=== PATIENT | male | born 1950 | race Caucasian/White ===

== ENCOUNTER 2016-11-25 09:17 | Day surgery (SDC) | payer MEDICARE ==
[~2016-11-25 09:17] MED LIST: RINGERS SOLUTION,LACTATED 1,000 ML IV PRN; ceFAZolin SODIUM 1 GM VIAL IV PRN
--- OUTSIDE RECORDS SUMMARY | 2016-11-25 09:24 | XMS REPORT | Continuity of Care Document ---
:1950 Author Organization [employer] Address [place] [address] Care Team Providers Name Role Phone Bar Wills Primary Care Provider [phone] Source Comments This disclosure is being made pursuant to the [employer] program and maynot contain all information available regarding this patient.[employer] Active Allergies and Adverse Reactions Not on File Current Medications Be aware that medications may not be up to date as of this document. Alwaysverify current medications with the patient. Prescription Sig. Disp. Refills Start Date End Date Status zolpidem (AMBIEN) 10 MG Take 10 mg by Active tablet mouth. amLODIPine (NORVASC) 2.5 MG Take 2.5 mg by Active tablet mouth daily. DULoxetine (CYMBALTA) 30 MG Take 30 mg by Active capsule mouth 2 (two) times daily. topiramate (TOPAMAX) 100 MG Take 100 mg by Active tablet mouth 2 (two) times daily. atorvastatin (LIPITOR) 40 Take 40 mg by Active MG tablet mouth daily. Cholecalciferol (VITAMIN D Take by mouth 2 Active PO) (two) times daily. Active Problems Problem Noted Date Iron deficiency anemia due to chronic blood loss 07/28/2015 Lumbosacral spondylosis 03/25/2011 Overview: Overview: SANDRA ALLEN MD Thoracic or lumbosacral neuritis or radiculitis 03/25/2011 Overview: Overview: SANDRA ALLEN MD Most Recent Encounters Date Type Specialty Providers Description 11/19/2016 Data Import Social History Tobacco Use Types Packs/Day Years Used Date Never Assessed Last Filed Vital Signs Vital Sign Reading Time Taken Blood Pressure 142/80 05/21/2011 3:19 PM CDT Pulse 70 05/21/2011 3:19 PM CDT Temperature 36.3 C (97.4 F) 05/21/2011 3:19 PM CDT Respiratory Rate 18 05/21/2011 3:19 PM CDT Height 1.778 m (5' 10") 05/21/2011 3:19 PM CDT Weight 106.142 kg (234 lb) 05/21/2011 3:19 PM CDT Body Mass Index 33.58 05/21/2011 3:19 PM CDT Oxygen Saturation - - Plan of Care Health Maintenance Due Date Last Done Comments Hepatitis C Screening 1966 Tetanus/Pertussis (1 - Tdap) 1967 Well Adult Visit 1998 Zoster Vaccine 60+ 2008 Pneumococcal Low/Medium Risk 65+ (1 of 2 - 2013 PCV13) Influenza Immunization (#1) 2016 Colonoscopy 07/04/2025 07/04/2015, 07/04/2015 Results from Last 3 Months Not on file
[2016-11-25] MEDS ORDERED: RINGERS SOLUTION,LACTATED 1,000 ML IV ONE ×2 (10:11→12:20)
--- NOTE | 2016-11-25 14:26 | OR ---
Operative Report - Dictated Report Narrative: Date: 11/25/2016 Surgeon: Moustapha Rodriguez M.D. Philanthropy Officer: Saran Amaral PA-C Preoperative diagnosis: Left Thumb carpometacarpal arthrosis, left long and ring trigger fingers Postoperative diagnosis: Left Thumb carpometacarpal arthrosis, left long and ring trigger fingers Operation: Left Thumb resection suspension arthroplasty of the carpo-metacarpal joint, trigger finger release left long and ring fingers Retained implants: 0.45 smooth Jane wire with pin cap Anesthesia: General plus regional Tourniquet time: 95 Minutes at 250 mmHg Estimated blood loss: Minimal Drains: None Specimen: Bone for disposal Complications: None Indications: Mr. Hough is a 58-year-old gentleman who is seen in the clinic for complaints of left basilar thumb arthrosis as well as triggering of the long and ring fingers. He failed conservative measures including but not limited to injections, medications, splinting, activity modification, and or therapy. Radiographs revealed advanced arthrosis of the thumb carpometacarpal joint and they wish to proceed with surgical treatment. The risks, benefits, and alternatives were discussed in the clinic. The risks of , blood clots, bleeding, infection, damage to nerve, tendon, or blood vessels, stiffness, weakness, persistent pain, deformity, and need for additional procedures were reviewed. He wished to proceed with the procedure. Procedure: After marking the correct extremity in the preoperative holding area, the patient was taken to the operating room and timeout was performed. IV antibiotics consisting of Ancef were administered. A regional followed by general anesthetic was induced by anesthesia. A well-padded tourniquet was applied to the upper arm. The surgical arm was then prepped and draped in a standard sterile fashion. A forearm esmarch tourniquet was applied to the operative upper arm. The arm was exsanguinated and esmarch band was applied. Using loupe magnification, a transverse incision in the appropriate palmar flexion crease in line with the digit. Blunt dissection was carried down through the subcutaneous tissues using bipolar cautery for hemostasis. Care was taken to protect the digital nerves. Staying midline along the flexor tendon, the A1 adryan was identified. A mark was made in the proximal edge of the A1 adryan and tenotomies were utilized in order to completely transect the A1 adryan. Care was to stay midline and avoid transection of the A2 adryan. Soft tissues overlying the flexor tendon proximal to the A1 adryan were also released ensuring that there were no other compressive structures contributing to the triggering. This was performed on the long and ring fingers. The finger was placed through range of motion and demonstrated no additional catching. The tendons were visualized and mobilized out of the wound, and did not demonstrate any gross pathology or masses that required debridement. The tendons were noted to be intact. Once was felt that we had decompressed the flexor tendons as they passed under the A1 adryan, the tourniquet was removed. Hemostasis was obtained with pressure and bipolar cautery. There was good return of color and capillary refill to the digit. Additional half percent Marcaine without epinephrine was infused into the skin edges. The wound was thoroughly irrigated. The skin was closed with interrupted 4-0 nylon. Next attention was turned to the thumb. A longitudinal incision approximately 6 cm in length was made centered over the dorsal aspect of the thumb carpometacarpal joint. This was bluntly dissected down to the subcutaneous tissue protecting the dorsal branch of the radial nerve and any other cutaneous nerves and vessels encountered. A capsulotomy and periosteal elevation was performed between the extensor pollicis brevis and extensor pollicis longus. The base of the thumb metacarpal as well as the trapezium were exposed and the soft tissues and capsule were elevated off this. Utilizing a oscillating saw, approximately 5 mm of the base of the thumb metacarpal was removed including the arthritic joint surface with the marginal osteophytes. The trapezium was then quartered and excised using a combination of ronguer and Humphreys blade. Care was taken to protect the deep flexor carpi radialis tendon. Once the trapezium was fully excised the flexor carpi radialis tendon was dissected down to its insertion on the index metacarpal and tagged with an umbilical tape. Attention was then turned to the procurement of the flexor carpal radialis tendon over the volar forearm. 2 small transverse incisions were made at the distal and musculotendinous portions of the flexor carpi radialis tendon. Blunt dissection was carried through subcutaneous tissue down to the flexor tendon. The flexor carpal radius tendon was tagged distally and then transected at the muscle tendinous junction proximally and mobilized into the thumb wound. The muscle attached to the tendon was then removed using a scalpel. The tendon was wrapped in a moist Ray-Mariza sponge. A bur was utilized in order to make a tunnel through the base of the thumb metacarpal approximately a centimeter distal exiting over the volar and ulnar aspect of the thumb metacarpal in line with the thumb nail. This was enlarged to accommodate the tendon and the bony edges were burred to make this a smooth return of the tendon on itself. The tendon was then passed through the tunnel without any complications. A 0.45 smooth Jane wire was placed through the thumb metacarpal into the index metacarpal using mini C-arm to confirm placement of the thumb in a pinch scrap kettle tender position suspended at the level of the index metacarpal. 4-0 Ethibond suture was placed deep in the capsule in order to stabilize the tendon graft. 4-0 Ethibond was utilized in order to repair the tendon back to itself as well as to the periosteum as it exited the tunnel. The tendon was then rolled into an anchovy orientation and secured with 4-0 Ethibond suture. 2 Angus needles were placed in order to pass the previously placed 4-0 Ethibond which was deep in the resected trapezium area and passed through the tendon in order to secure the tendon into the base of the wound. This allowed for filling of the defect from the prior removed trapezium. The wounds were then thoroughly irrigated. Tourniquet was deflated and hemostasis was obtained with bipolar cautery. 4-0 nylon was used to close the tendon procurement site. 4-0 Vicryl was utilized in order to repair the joint capsule and periosteum onto the tendon graft. Subcutaneous 4-0 Vicryl and 4-0 nylon on the skin were utilized in order to close the thumb wound. The K wire was bent and capped outside the skin. Xeroform, 4 x 4's, soft roll, and a well-padded thumb spica splint were applied and the patient was awoken and transferred to postanesthesia care unit in stable condition. All sponge, needle, sharp, and instrument counts were correct prior to closing the wounds.
[2016-11-25 16:01] VITALS: BP 114/72
== END 2016-11-25 09:18 | disposition home or self-care (01) ==
LOC: AMB 09:17
PROVIDERS: ATTEND Orthopaedic Surgery
PROC: 0LN80ZZ Release Left Hand Tendon, Open Approach (ICD-10-PCS; 2016-11-25)
PROC: 0RQT0ZZ Repair Left Carpometacarpal Joint, Open Approach (ICD-10-PCS; principal; 2016-11-25 11:15)
PROC: 0LN80ZZ Release Left Hand Tendon, Open Approach (ICD-10-PCS; 2016-11-25 11:15)
DX: M18.9 Osteoarthritis of first carpometacarpal joint, unspecified (principal); M65.332 Trigger finger, left middle finger; M65.342 Trigger finger, left ring finger; I10 Essential (primary) hypertension; E78.5 Hyperlipidemia, unspecified; Z68.29 Body mass index [BMI] 29.0-29.9, adult

== ENCOUNTER 2017-06-25 08:40 | Day surgery (SDC) | payer MEDICARE ==
[~2017-06-25 08:40] MED LIST changes: +RINGER'S SOLUTION,LACTATED 1,000 ML IV PRN; -RINGERS SOLUTION,LACTATED 1,000 ML IV PRN
--- NOTE | 2017-06-25 11:51 | POSTOP NO ---
Date of Surgery: 06/25/17 Start Time: 11:50 Anesthesia: Block Post Operative Diagnosis/Procedures: Pre Operative Diagnosis: Left shoulder rotator cuff tear, subacromial impingement, acromial clavicular arthrosis retained implants Post Operative Diagnosis: Left shoulder rotator cuff tear, subacromial impingement, acromial clavicular arthrosis retained implants Procedure Performed: Left shoulder arthroscopy, revision mini open rotator cuff repair, subacromial decompression with acromioplasty, Adriana procedure, removal of deep implants Fabricator Industrial Furnace: Saran Amaral Tourniquet Time (minutes): Estimated Blood Loss: Minimal Fluids Given: Drains: Specimens: None Implants: Surgical Complications: Findings: Above Condition: Disposition:
--- NOTE | 2017-06-25 11:56 | OR ---
Operative Report - Dictated Report Narrative: Date: 06/25/2017 Physician: Moustapha Rodriguez M.D. Separator Tender: Saran Amaral PA-C Preoperative diagnosis: Recurrent left Shoulder rotator cuff tear, acromioclavicular arthrosis resulting impingement, subacromial impingement, retained implants Postoperative diagnosis: Recurrent left Shoulder rotator cuff tear, acromioclavicular arthrosis resulting impingement, subacromial impingement, retained implants Procedure: Left shoulder arthroscopy with revision mini open rotator cuff repair , subacromial decompression acromial plasty, Adriana procedure, removal of deep implants Anesthesia: General plus regional Complications: None Estimated blood loss: Minimal Specimens: None Retained implants: [employer] 4.5mm peek helicoil anchor 2, footprint anchor 2 Drains: None Indications: Mr. Hough Is a 66 year-old gentleman who has been followed in my clinic with complaints of shoulder pain consistent with rotator cuff pain and impingement. Physical exam and diagnostic imaging were consistent with his complaints and concern for recurrent rotator cuff tear as well as subacromial impingement and acromial clavicular arthrosis. Conservative measures have failed including, but not limited to, passage of time, activity modification, medications, physical therapy/home exercise program, or injections. The risks, benefits, and alternatives were discussed in clinic. The risks being , bleeding, infection, blood clots, nerve, tendon, ligament, blood vessel injury, persistent pain, arthrosis, stiffness, need for prolonged therapy, need for additional procedures, and persistent symptoms. Consent was obtained in the clinic. Procedure: After marking the correct extremity in the preoperative holding area, a timeout was performed in the operating room. IV antibiotics consisting of Ancef were administered prior to the procedure. A general followed by regional anesthetic was induced by the nurse dentistry professor per my request. This was in the supine position, then the patient was transitioned to a beachchair position with all bony prominences well-padded, head in neutral, the nonoperative arm well supported, and the legs padded with SCDs in place. The operative shoulder was then prepped and draped in a standard sterile fashion. Preoperatively the shoulder had full passive range of motion, and gross instability. After marking out the bony landmarks, saline was infused into the joint through a posterior lateral portal site. A mark incision was made, and the blunt trocar and cannula was introduced into the shoulder joint. An accessory portal was placed in the rotator cuff interval using a spinal needle for guidance. Upon initial evaluation, the biceps tendon showed signs of prior biceps tenodesis. The middle glenohumeral ligament was frayed but intact. Subscapularis tendon was unremarkable. The glenoid showed mild arthrosis. The humeral head articular surface showed mild arthrosis. The anterior labrum was intact. The superior labrum was unremarkable. The pouch was unremarkable. The posterior labrum was frayed but intact. The supraspinatus tendon was torn and elevated without significant retraction. There were signs of prior rotator cuff repair was retained suture which were excised using a shaver. The infraspinatus tendon was split with a portion of it still intact. Utilizing a lateral portal as well as anterior portal the greater tuberosity rotator cuff tendon and retained sutures were debrided. Attention was then turned to the subacromial space. Subacromial bursectomy was performed utilizing the prior portals. The coracoacromial ligament frayed and minimally intact. The bursal side of the rotator cuff demonstrated full- thickness tear as identified intra-articularly. The acromial arch noted to have an anterior lateral spur. Utilizing a lateral portal as well as anterior portal the acromion was skeletonized using an arch cautery device. The acromion was then burred removing approximately 4-5 mm of bone over the anterior lateral aspect of the acromion down to a smooth surface. Based on the arthroscopic findings, as well as exam and radiographic findings, it was elected to proceed with a mini open rotator cuff repair. A longitudinal incision centered over the previously identified rotator cuff tear was made just off the edge of the acromion. This was approximately 5 centimeters in length. The deltoid fascia was split sharply in line with its fibers, and blunt dissection was carried through the deltoid muscle. Any remaining subacromial bursal tissue was debrided in order to expose the underlying rotator cuff tear. The rotator cuff tear appeared to be longitudinal split in orientation. The tuberosity was debrided of its soft tissues producing a bleeding bed for the tendon to be secured to. 2 4.5 mm PEEK helicoil anchor was placed just off the articular surface of the humeral head. A series of horizontal mattress sutures were placed at the prepared edge of the rotator cuff. This allowed for a tension-free return of the tendon to the greater tuberosity. The sutures were then passed longitudinally into 2 4.5 mm PEEK footprint anchor. This was performed and a suture bridge technique. This gave good overall compression to the rotator cuff at the insertion site. The shoulders place a range of motion and had no lift off of the repair site as well as no crepitance or signs of impingement. Full passive range of motion was able to be obtained. Attention was then turned to the distal clavicle. A longitudinal incision was made over the acromioclavicular joint. This was sharply dissected down to the chromic clavicular capsule. Cautery was utilized for hemostasis. A longitudinal capsulotomy was made and elevated off the anterior posterior aspects of the distal clavicle. There is notable hypertrophic bone and loss of joint space between the acromion and clavicle. Protecting the surrounding soft tissues, an oscillating saw was utilized in order to resect approximately 7-10 mm of bone from the distal clavicle. The remaining clavicle was stable after removing this. The shoulders place a range of motion and showed no remaining impingement between the acromion and the clavicle. Wounds were then thoroughly irrigated. The capsule was closed with interrupted 0 Vicryl to subcutaneous tissue with 3-0 Monocryl. Skin was closed with 4-0 nylon. Once it was felt that the rotator cuff was adequately repaired, the wounds were thoroughly irrigated. 0 Vicryl was utilized in order to repair the deltoid fascia. 3-0 Monocryl was placed in the subcutaneous tissue. The rotator cuff incision as well as the portal sites were closed with interrupted nylon. Dressings consisting of Xeroform, 4 x 4, ABD, soft roll, and tape were applied. All sponge, needle, blade, and instrument counts were correct prior to closing the wounds. The patient was awoken and transferred to the postanesthesia care unit in stable condition.
--- NOTE | 2017-06-25 12:26 | OR ---
Anesthesia Procedure Note - Anesthesia Procedure Note Date of Service: 06/25/17 Narrative: Vital Signs - Last Taken Temp 36.5 C 06/25/17 12:20 Pulse 86 06/25/17 12:20 Resp 14 06/25/17 12:20 BP 124/72 06/25/17 12:20 Pulse Ox 93 06/25/17 12:20 O2 Oxygen Delivery Method Nasal Cannula 06/25/17 12:24 ANESTHESIA PROCEDURE NOTE Date of Procedure: 06/25/2017 Time of procedure: 10 AM. Performed by: CRISTIAN Cintron CRNA, MSN Waiter/Waitress Bar: Sherri Reagan RN. Preprocedure diagnosis: Status post left shoulder surgery pain relief. Post procedure diagnosis: Same. Procedure: Left Interscalene nerve block. Indications: Post left shoulder surgery pain relief. Findings: See below. Details of the procedure: The patient was brought to OR #2 and placed in semi- Fowlers position. The patient was prepped with chlorhexidine and using ultrasound guidance the left interscalene segment of the brachial plexus was identified and lidocaine 1% was infiltrated to the skin of the intended injection site. Under ultrasound guidance the interscalene nerve bundles were approached with visualization of a 2inch stimulator needle visualized unde ultrasound until a shoulder/arm response was identified on nerve stimulator. Once the stimulator response was effective at less than 0.5 mV and greater than 0.3 mV the bracheal plexus nerves at this level were surrounded with 30 mL bupivacaine 0.25% with 1-200,000 epinephrine. Please see radiology/ultrasound report for details and retained images of the procedure. EBL: 0 Fluids: N/A. Specimen: N/A. Post procedure condition: The patient tolerated the procedure well. No complications were noted. Thank you for this consultation. Cali Edmond CRNA, LEGAL SECRETARY, MSN
[2017-06-25 14:12] VITALS: BP 111/68
[2017-06-25] MEDS ORDERED: oxyCODONE HCL/ACETAMINOPHEN 1 TAB TABLET PO PRN (15:43)
[2017-06-25] MEDS ORDERED: HYDROmorphone HCL 2 MG/ML VIAL IV PRN (15:44)
== END 2017-06-25 08:41 | disposition home or self-care (01) ==
LOC: AMB 08:40
PROVIDERS: ATTEND Orthopaedic Surgery
PROC: 0RNK4ZZ Release Left Shoulder Joint, Percutaneous Endoscopic Approach (ICD-10-PCS; 2017-06-25)
PROC: 0LQ20ZZ Repair Left Shoulder Tendon, Open Approach (ICD-10-PCS; 2017-06-25)
PROC: 0PBB0ZZ Excision of Left Clavicle, Open Approach (ICD-10-PCS; 2017-06-25)
PROC: 3E0T3BZ Introduction of Anesthetic Agent into Peripheral Nerves and Plexi, Percutaneous Approach (ICD-10-PCS; 2017-06-25)
PROC: 0RBK4ZZ Excision of Left Shoulder Joint, Percutaneous Endoscopic Approach (ICD-10-PCS; principal; 2017-06-25 10:25)
DX: M75.102 Unspecified rotator cuff tear or rupture of left shoulder, not specified as traumatic (principal); M19.012 Primary osteoarthritis, left shoulder; M75.42 Impingement syndrome of left shoulder; I10 Essential (primary) hypertension; E78.00 Pure hypercholesterolemia, unspecified; N40.0 Benign prostatic hyperplasia without lower urinary tract symptoms; Z68.30 Body mass index [BMI] 30.0-30.9, adult

== ENCOUNTER 2018-11-28 08:24 | Inpatient (IN) ==
[~2018-11-28 08:24] MED LIST changes: +MORPHINE SULFATE 15 MG TABLET.SA PO PRN; -RINGER'S SOLUTION,LACTATED 1,000 ML IV PRN; +TRANEXAMIC ACID 1,000 MG in NORMAL SALINE 100 ML IV PRN
[2018-11-28] MEDS: RINGER'S SOLUTION,LACTATED 1,000 ML IV PRN ×2 (09:00→12:57)
--- NOTE | 2018-11-28 10:00 | ANES ---
Anesthesia Pre Procedure Eval Vitals/Labs: Last Vital Signs Temp 36.5 C 11/28/18 08:39 Pulse 85 11/28/18 08:39 Resp 16 11/28/18 08:39 BP 111/70 11/28/18 08:39 Pulse Ox 97 11/28/18 08:39 HOME MEDICATIONS Aspirin [Aspirin Enteric Coated] 81 mg PO DAILY 03/31/16 [Last Taken 11/21/18] Gabapentin [Neurontin] 900 mg PO TID 03/31/16 [Last Taken Unknown] Sertraline HCl [Zoloft] 50 mg PO HS MDD TAKES 1/2 TAB OF 100MG 03/31/16 [Last Taken Unknown] Zolpidem Tartrate [Ambien] 10 mg PO HS MDD TAKES 2 TABS OF 5 MG 05/27/16 [Last Taken Unknown] Melatonin 6 mg PO HS MDD TAKES 2 TABS OF 3 MG 06/07/17 [Last Taken Unknown] Tamsulosin HCl [Flomax] 0.4 mg PO DAILY@1800 06/07/17 [Last Taken Unknown] cholecalciferol (vitamin D3) 2,000 unit capsule 2,000 unit PO DAILY 03/24/18 [Last Taken Unknown] glucosamine-chondroitin 250 mg-200 mg tablet 1 tab PO DAILY tab 03/24/18 [Last Taken Unknown] multivitamin with folic acid 400 mcg tablet 1 tab PO DAILY tab 03/24/18 [Last Taken Unknown] amlodipine 5 mg tablet 10 mg PO HS MDD TAKES 2 TABS OF 5 MG 11/15/18 [Last Taken 11/28/18 07:00] Atorvastatin Calcium 20 mg PO HS 11/25/18 [Last Taken Unknown] Clonazepam 0.5 mg PO BID 11/28/18 [Last Taken Unknown] DULoxetine HCL [Cymbalta] 30 mg PO DAILY 11/28/18 [Last Taken Unknown] Allergies/Adverse Reactions: Allergies Allergy/AdvReac Type Severity Reaction Status Date / Time No Known Allergies Allergy Verified 11/28/18 08:47 - Planned Procedure Planned Procedure: Right Arthroplasty Total Shoulder Reverse Medication List Reviewed:: Yes Allergies Verified: Yes Medical History (Last Reviewed 11/28/18 @ 09:40 by Cali Edmond CRNA) [facility] arthritis Onset Date: 2016 Carpal tunnel syndrome rt Cubital tunnel syndrome left Hernia, hiatal Onset Date: 1998 Hyperlipidemia Onset Date: 1999 Hypertension Onset Date: 2002 Medial meniscus tear Onset Date: 2012 right Osteoarthritis Onset Date: 11/26/14 rt knee PTSD (post-traumatic stress disorder) Onset Date: 2009 Shoulder pain, left Trigger finger Onset Date: 11/2016 lt long and ring Surgical History (Last Reviewed 11/28/18 @ 09:40 by Cali Edmond CRNA) H/O arthroscopy of knee Onset Date: 2012 torn meniscus History of appendectomy Onset Date: 1998 History of arthroplasty Onset Date: 11/25/16 Dr. Rodriguez: left thumb resection suspension arthroplasty of the carpo- metacarpal joint History of arthroplasty of left shoulder Onset Date: 11/29/17 reverse History of arthroscopy of shoulder Onset Date: 06/25/17 left shoulder arthroscopy with revision mini open RCR, subacromial decompression acromial plasty Adriana procedure removal deep implants Dr. Rodriguez History of back surgery Onset Date: 2011 ALIF fused L4 and L5 History of carpal tunnel release Onset Date: 04/06/16 endoscopic, right-Dr. Rodriguez History of cholecystectomy Onset Date: 1998 History of circumcision Onset Date: 1960 History of colonoscopy Onset Date: 2015 WNL History of hernia repair Onset Date: 1998 umbilical History of lithotripsy Onset Date: 2010 left kidney History of repair of rotator cuff Onset Date: 2011 left [place] History of tonsillectomy Onset Date: 1960 History of total knee arthroplasty Onset Date: 12/03/14 right-Dr. Rodriguez Status post trigger finger release Onset Date: 11/25/16 : left long and ring fingers biceps tendon repair Onset Date: 2011 detatched biceps -left Family History (Last Reviewed 11/28/18 @ 09:40 by Cali Edmond CRNA) Mother Cancer bladder CHF (congestive heart failure) Father Alive and well Sister Cancer Sister Alive and well - Family Anesthesia History Family History:: no untoward family reactions to anesthesia, no familial bleeding tendencies, no family history of clotting disorders, no family history of premature - Airway/Neck/Teeth Within Normal Limits:: Yes Neck Exam: full range of motion Mallampatti Score: 3 Thyromental (T-M) distance: > 6 cm Mandibulo Hyoid distance: > 3 cm - Cardiovascular Cardiac History: hypertension Tolerate Activity: Fair Heart Sounds: S1 & S2, Regular - Anesthesia Assessment and Plan ASA Class: PS, II Anesthesia Type Plan: General LMA, Block - Interscalene block for post op pain relief
--- NOTE | 2018-11-28 11:40 | ANES ---
Anesthesia Procedure Note Procedure Note: ANESTHESIA PROCEDURE NOTE Date of Procedure: 11/28/2018 Time of procedure: 10:20 AM. Performed by: Cali Edmond CRNA, MSN Employment Law Specialist: Libia Scherer RN. Preprocedure diagnosis: Post right shoulder surgery pain. Post procedure diagnosis: Same. Procedure: Right Interscalene nerve block. Indications: Post right reverse total shoulder arthroplasty pain relief. Findings: See below. Details of the procedure: The patient was brought to OR #2 and placed in semi- Fowlers position. The patient was prepped with chlorhexidine and using ultrasound guidance the right interscalene level of the brachial plexus was identified and lidocaine 1% was infiltrated to the skin of the intended injectio n site. Under ultrasound guidance the interscalene nerve bundles of the brachial plexus were approached with visualization of a 2 inch stimulator needle visualized unde ultrasound until a shoulder/arm response was identified on nerve stimulator. Once the stimulator response was effective at less than 0.5 mV and greater than 0.3 mV the brachial plexus nerves at this level were surrounded with 30 mL bupivacaine 0.25% with 1-200,000 epinephrine. Please see radiology/ultrasound report for details and retained images of the procedure. EBL: 0 Fluids: N/A. Specimen: N/A. Post procedure condition: The patient tolerated the procedure well. No complications were noted. Thank you for this consultation. Cali Edmond CRNA, MSN
[2018-11-28] MEDS ORDERED: MORPHINE SULFATE 2 MG/ML DISP.SYRIN IV PRN (13:16)
[2018-11-28] MEDS ORDERED: ZOLPIDEM TARTRATE 5 MG TABLET PO PRN (13:16)
[2018-11-28] MEDS ORDERED: ACETAMINOPHEN 500 MG TABLET PO PRN (13:16)
[2018-11-28] MEDS ORDERED: ONDANSETRON HCL/PF 2 MG/ML VIAL IV PRN (13:16)
[2018-11-28] MEDS ORDERED: DEXTROSE 5%-LACTATED RINGERS 1,000 ML IV PRN (13:16)
[2018-11-28] MEDS ORDERED: MAGNESIUM HYDROXIDE 30 ML UDC PO PRN (13:16)
[2018-11-28] MEDS ORDERED: diphenhydrAMINE HCL 50 MG/ML VIAL IV PRN (13:16)
[2018-11-28] MEDS ORDERED: MAG HYDROX/ALUMINUM HYD/SIMETH 30 ML UDC PO PRN (13:16)
[2018-11-28] MEDS ORDERED: oxyCODONE HCL/ACETAMINOPHEN 1 TAB TABLET PO PRN (13:16)
--- NOTE | 2018-11-28 13:27 | OR ---
Operative Report - Dictated Report Narrative: DATE OF PROCEDURE: 11/28/2018 PHYSICIAN: Moustapha Rodriguez MD MAGAZINE PUBLISHER: Saran Amaral PA-C (provided and essential set of skilled, educated hands and assisted with transfer, positioning, prepping, draping, manipulation, retraction, placement of implants, irrigation, closure wounds, and application of dressings all which cannot be performed by the available surgical crew) PREOPERATIVE DIAGNOSIS: Right rotator cuff deficient shoulder arthrosis. POSTOPERATIVE DIAGNOSIS: Right rotator cuff deficient shoulder arthrosis. OPERATIONS AND PROCEDURES: Right reverse total shoulder arthroplasty. ANESTHESIA: General plus regional. COMPLICATIONS: None. DRAINS: None. SPECIMENS: Bone for disposal. ESTIMATED BLOOD LOSS: 100 mL. RETAINED IMPLANTS: 1. DePuy Delta Xtend cementless metaglene. 2. Delta Xtend glenosphere, 38 mm eccentric. 3. Delta Xtend size 10 modular humeral PETTIT-coated cementless stem. 4. Size 1 right modular eccentric epiphysis PETTIT-coated cementless. 5. Delta Xtend standard polyethylene size 38 plus 9 mm. 6. Metaglene locking screws, 42 mm and 36 mm in length. 7. Nonlocking metaglene screws, 18 mm x 2 . INDICATIONS FOR PROCEDURE: Mr. Hough is a 68-year-old woman with significant past history of rotator cuff and arthrosis deficiency. He had treated these conservatively and had an irreparable rotator cuff with some progression of arthrosis of the shoulder and difficulty with activities of daily living in pain. He was seen in clinic and had failed conservative measures. He wished to proceed with surgical treatment. The risks, benefits, and alternatives were discussed in clinic, including the risk of , blood clots, bleeding, infection, nerve/tendon/blood vessel injury, malposition of components, failure of components, wear or limited range of motion, stiffness, and need for additional procedures, and she wished to proceed. Consent was obtained here in the clinic. DESCRIPTION OF PROCEDURE: After marking the correct extremity in the preoperative holding area, the patient was taken to the operating room. A timeout was performed. IV antibiotics consisting of Ancef were administered prior to procedure. The regional followed by general anesthetic was induced by the nurse personal lines account executive at my request. He was then transitioned to beach chair position with all bony prominences well padded. The head in neutral, legs with SCDs and supported,and the nonoperative arm supported. The surgical arm was prescrubbed with alchol then prepped and draped in the standard sterile fashion and the skin was covered with ioban. A deltopectoral incision was made and blunt dissection was carried down through the skin. The cephalic vein was identified, protected, and retracted. We then went through the deltopectoral interval, exposing the proximal humerus. It was noted that there was no rotator cuff, supraspinatus and infraspinatus tendon, or teres minor tendon. The subscapularis was intact as well as the biceps. A tag suture was placed in subscapularis tendon as well as the anterior capsule, and this was elevated off the anterior humerus passing along the bicipital groove and into the rotator cuff interval, exposing the proximal humerus. This was then freed off the proximal humerus. A biceps tenotomy was performed and the shoulder was dislocated. The humeral head was noted to show signs of arthrosis. Next, an entry drill was placed down the humerus centered on the longitudinal axis entering off just onto the articular surface on the humeral head. Next were serial reamers up to the size 10 were utilized, which gave good overall cortical contact. Next, a proximal humeral head cut was performed. We made the cut at approximately 5 degrees of retroversion. This appeared to resect an appropriate amount of humeral head. This was then pinned into place and an oscillating saw was utilized to cut this humeral head, protecting the surrounding soft tissues. We then placed a cap over the proximal humerus and turned our attention to the glenoid. The soft tissues were then elevated off the humeral neck as well as circumferentially around the glenoid. The glenoid was exposed. The remaining biceps tendon and labrum were resected. Using tractors, the glenoid was exposed and a guidewire was placed just posterior and inferior to the center of the glenoid. This was made so that it directed slightly superiorly but otherwise perpendicular to the glenoid on the axillary plane. Protecting the surrounding soft tissues, a reamer was utilized in order to remove the remaining cartilage. A broom handle dipper was utilized in order to resect the superior cartilage, and this resulted in a good overall appearance of the glenoid. The center drill lug hole was drilled and had good circumferential bone. The metaglene was then impacted into place and oriented for placement of screws along the mid plane in the superior and inferior quadrants of the glenoid as well as anterior to posterior screws. These were drilled and had appropriate overall length of screws on the superior and inferior metaglene screws. Good purchase was obtained with a 36 mm screw superiorly and 42 mm screw inferiorly. The anterior and posterior screws were drilled and 18 mm anterior and 18mm posterior nonlocking screws were placed. We then locked the superior and inferior screws into place. This gave good overall compression down to the glenoid with flat overall appearance and an appropriate alignment. The eccentric glenosphere was then placed with the eccentricity inferior and securely fastened to the metaglene. We returned our attention to the proximal humerus. The proximal humeral reaming guide was placed for an eccentric reamer. This was utilized in order to prepare the proximal humerus. The trial stem was assembled on the back table and impacted into place. I placed the trials of polyethylene inserts and found that the 9mm gave good overall longitudinal traction with no gapping. The shoulder was able to reach 140 degrees of forward flexion and 140 degrees of abduction, external rotation was to 90 degrees and with fulcrum and armpit were unable to hinge the joint out of place, and there was no essentially no gapping of the polyethylene off the humeral head nor any signs of impingement on the glenoid neck. We felt that these were the appropriately placed and sized implants. We then dislocated the shoulder, removed the trial implants, thoroughly irrigated the humerus, impacted the final implants into place in the prior determined retroversion. The trial polyethylene was utilized again and was noted that the actual stem and the trial stem were equal in tension, and thus the final polyethylene was impacted into place. The shoulder was reduced, again noted to be stable, was then thoroughly irrigated. The subscapularis and biceps tendon were secured to the surrounding soft tissues using a #1 Ethibond suture. The deltopectoral interval was closed with #1 Vicryl. The deep tissues were then closed with #0 Vicryl, subcutaneous with 3-0 Vicryl, and the skin with gerber. Xeroform, 4 x 4, soft roll, and forearm Leland was applied. The patient was placed in a shoulder sling, awoken, and transferred to postanesthesia care in stable condition. All sponge, needle, and instrument counts were correct prior to closing the wounds. We will obtain postoperative films and be admitted to the floor for postoperative pain control, IV antibiotics, and starting of physical t herapy. I anticipate a one to two night hospital stay.
--- NOTE | 2018-11-28 13:39 | ANES ---
Post Anesthesia Discharge - Transfer of Care Transfer of Care handoff given to nurse: Yes - Discharge from PACU Discharge from PACU when meets criteria: Yes - Comfortable in PACU.
[2018-11-28] MEDS: KETOROLAC TROMETHAMINE 15 MG/ML VIAL IV SCH ×2 (14:15→19:52)
[2018-11-28] MEDS: ceFAZolin SODIUM 1 GM in DEXTROSE 5 % IN WATER 100 ML IV SCH ×4 (14:16→21:42)
--- NOTE | 2018-11-28 14:43 | ANES ---
Post Anesthesia Assessment - Vital Signs Vitals: Last Vital Signs Temp 36.4 C 11/28/18 13:55 Pulse 78 11/28/18 13:55 Resp 14 11/28/18 13:55 BP 102/64 11/28/18 13:55 Pulse Ox 96 11/28/18 13:55 Airway Patency: Normal - Mental Status Level Of Consciousness: Awake, Alert, Appropriate - Pain Level Pain Score: 0 - N/V Assessment Nausea/Vomiting Presence: None Dehydration:: No
[2018-11-28] MEDS: GABAPENTIN 300 MG CAPSULE PO SCH (17:16)
[2018-11-28] MEDS ORDERED: TAMSULOSIN HCL 0.4 MG CAP.SR.24H PO SCH (18:00)
[2018-11-28] MEDS ORDERED: MELATONIN 3,000 MCG TABLET PO SCH (21:00)
[2018-11-28] MEDS ORDERED: amLODIPine BESYLATE 10 MG TABLET PO SCH (21:00)
[2018-11-28] MEDS ORDERED: SENNOSIDES/DOCUSATE SODIUM 1 TAB TABLET PO SCH (21:00)
[2018-11-28] MEDS ORDERED: ZOLPIDEM TARTRATE 5 MG TABLET PO SCH (21:00)
[2018-11-28] MEDS ORDERED: SERTRALINE HCL 50 MG TABLET PO SCH (21:00)
[2018-11-28] MEDS ORDERED: ROSUVASTATIN CALCIUM 10 MG TABLET PO SCH (21:00)
[2018-11-28] MEDS: ASPIRIN 325 MG TABLET.DR PO SCH (21:45)
[2018-11-28] MEDS: MORPHINE SULFATE 15 MG TABLET.SA PO SCH (22:06)
[2018-11-28] MEDS: clonazePAM 0.5 MG TABLET PO SCH (22:06)
[2018-11-29] MEDS: KETOROLAC TROMETHAMINE 15 MG/ML VIAL IV SCH ×2 (01:29→06:48)
[2018-11-29] MEDS: ceFAZolin SODIUM 1 GM in DEXTROSE 5 % IN WATER 100 ML IV SCH ×2 (03:20)
[2018-11-29 05:37] LABS: Hematocrit 37.5 % (42.0-52.0); Mean Corpuscular Hemoglobin 22.9 pg (27-31); Mean Corpuscular Hgb Conc 29.3 g/dl (32-36); Platelet Count 314 K/mm3 (150-450); Red Blood Count 4.81 M/mm3 (4.7-6.0); White Blood Count 9.2 K/mm3 (4.0-10.5)
[2018-11-29 06:15] LABS: Anion Gap 12.6 mmol/L (6.8-13.8); BUN/Creatinine Ratio 14.2 (9.0-21.6); Calcium * 8.6 mg/dL (7.9-10.9); Carbon Dioxide 22.7 mmol/L (24-32.6); Estimated Creat Clear 60.5; Potassium 4.3 mmol/L (3.4-4.6)
[2018-11-29] MEDS: MORPHINE SULFATE 15 MG TABLET.SA PO SCH (08:46)
[2018-11-29] MEDS: ASPIRIN 325 MG TABLET.DR PO SCH (08:46)
[2018-11-29] MEDS: GABAPENTIN 300 MG CAPSULE PO SCH (08:46)
[2018-11-29] MEDS: clonazePAM 0.5 MG TABLET PO SCH (08:48)
[2018-11-29] MEDS ORDERED: CHOLECALCIFEROL 1,000 UNIT CAPSULE PO SCH (09:00)
[2018-11-29] MEDS ORDERED: DULoxetine HCL 30 MG CAPSULE.SA PO SCH (09:00)
[2018-11-29] MEDS ORDERED: MULTIVITAMINS 1 CAP CAPSULE PO SCH (09:00)
--- NOTE | 2018-11-29 12:00 | DS ---
(1) Acute blood loss anemia Problem: Acute (2) S/p reverse total shoulder arthroplasty Problem: Acute Qualifiers: Laterality: right Qualified Code(s): Z96.611 - Presence of right artificial shoulder joint (3) Hypercholesteremia Problem: Chronic (4) Hyperlipidemia Problem: Chronic (5) Hypertension Problem: Chronic Description of Stay: Mr. Hough was admitted to the floor after undergoing right reverse total shoulder arthroplasty. Tolerated this well. Was admitted to the floor postoperatively for 24 hours of IV antibiotics, pain control, medical comanagement, and occupational and physical therapy. OT and PT were consulted to assist with activities of daily living and shoulder function. Was made non- weightbearing as tolerated with range of motion as tolerated. Pain was initially controlled with IV regimen. This was transitioned to oral once tolerating a by mouth intake. Was resumed on home diet and medications. Aspirin, SCD and JIMI hose were utilized for DVT prophylaxis. Vital signs remained stable to the hospital course. Labs were obtained which showed a final hemoglobin of 11.0 grams. BMP was reviewed and was stable. Physical examination throughout the hospital course showed an extremity that had sensation that was altered numerous block but improved and intact to light touch, palpable pulses, a benign wound. Once an oral pain regimen was tolerated and physical therapy goals were met, it was felt that they were stable for discharge to home. Instructions: Continue with non-weightbearing as tolerated and range of motion as tolerated. Wear an Leland wrap on the arm and keep wounds dry. Do not bathe or soak the wound. Cover wound while showering. Continue with physical therapy. Resume home diet. Report any fever over 101.5 Fahrenheit, uncontrolled pain, increased drainage, foul odor of drainage, new or increased calf pain or shortness of breath, or any other significant complaints. A 325mg twice dialy aspirin will be utilized for 1 month. No driving until instructed otherwise. Follow up in approximately 10-14 days. Procedures Performed: see notes below List Procedures: Right reverse total shoulder arthroplasty Results and Findings: Lab Pending Results 11/29/18 05:29: WBC 9.2, RBC 4.81, Hgb 11.0 L, Hct 37.5 L, MCV 78.0, MCH 22.9 L, MCHC 29.3 L, RDW 16.0 H, Plt Count 314, MPV 9.0 11/29/18 05:29: Sodium 138, Plasma Sodium 139, Potassium 4.3, Chloride 107 H, Carbon Dioxide 22.7 L, Anion Gap 12.6, BUN 15, Creatinine 1.06, Est GFR (Non-Af Amer) 73, BUN/Creatinine Ratio 14.2, Random Glucose 160 H, Calcium 8.6 Discharge Location: Home Disposition: Home self-care Condition: Good Discharge Activity: Non-Weight bearing, Other - reverse total shoulder protocol Discharge Diet: General/regular food Referrals: Bar Wills MD [Primary Care Provider] - Additional Patient Instructions (free text): Physical Therapy at [facility] outpatient rehab on Wednesday11/30/18 at 1:15pm. Follow up Orthopedic appt with Dr Rodriguez on Wednesday12/13/18 at 8:45am. Prescriptions (Any new or edited meds): Morphine Sulfate [Ms Contin] 15 mg PO Q12H #14 tablet.sa oxyCODONE HCL/ACETAMINOPHEN [Percocet 5 MG/325 MG] 2 tab PO Q4H PRN #60 tab PRN Reason: Moderate Pain (Pain Scale 4-6) Sennosides/Docusate Sodium [Senokot-S] 2 tab PO HS #60 tab Complete Home Medications List: Complete Home Medication List: Aspirin [Aspirin Enteric Coated] 81 mg PO DAILY 03/31/16 Gabapentin [Neurontin] 900 mg PO TID 03/31/16 Sertraline HCl [Zoloft] 50 mg PO HS MDD TAKES 1/2 TAB OF 100MG 03/31/16 Zolpidem Tartrate [Ambien] 10 mg PO HS MDD TAKES 2 TABS OF 5 MG 05/27/16 Melatonin 6 mg PO HS MDD TAKES 2 TABS OF 3 MG 06/07/17 Tamsulosin HCl [Flomax] 0.4 mg PO DAILY@1800 06/07/17 cholecalciferol (vitamin D3) 2,000 unit capsule 2,000 unit PO DAILY 03/24/18 glucosamine-chondroitin 250 mg-200 mg tablet 1 tab PO DAILY tab 03/24/18 multivitamin with folic acid 400 mcg tablet 1 tab PO DAILY tab 03/24/18 amlodipine 5 mg tablet 10 mg PO HS MDD TAKES 2 TABS OF 5 MG 11/15/18 Atorvastatin Calcium 20 mg PO HS 11/25/18 Clonazepam 0.5 mg PO BID PRN 11/28/18 DULoxetine HCL [Cymbalta] 30 mg PO DAILY 11/28/18 Aspirin [Aspirin Enteric Coated] 325 mg PO BID tablet. 11/29/18 Morphine Sulfate [Ms Contin] 15 mg PO Q12H #14 tablet.sa 11/29/18 Sennosides/Docusate Sodium [Senokot-S] 2 tab PO HS #60 tab 11/29/18 oxyCODONE HCL/ACETAMINOPHEN [Percocet 5 MG/325 MG] 2 tab PO Q4H PRN #60 tab 11/29/18 Amb Orders for Discharge: PT Evaluation and Treatment* Facility: [facility], Location: Rehabilitation Services
[2018-11-29 12:50] VITALS: BP 95/65
== END 2018-11-29 13:10 | disposition home or self-care (01) | DRG 483 ==
LOC: MS 08:24
PROVIDERS: ADMIT Orthopaedic Surgery; ATTEND Orthopaedic Surgery
CPT/HCPCS: 36415; 73030; 80048; 85027; 94660; 97161; 97165